=== PATIENT | male | born 1935 | race Caucasian/White ===

== ENCOUNTER 2016-09-12 | Outpatient (CLI) | payer MEDICARE, OTHER | END 2016-09-12 18:19 | disposition EMS.NT | DX: Z03.89 Encounter for observation for other suspected diseases and conditions ruled out (principal) ==

== ENCOUNTER 2016-10-30 11:19 | Emergency (ER) | payer MEDICARE, OTHER | END 2016-10-30 13:05 | disposition home or self-care (01) | DX: R10.2 Pelvic and perineal pain (principal); I10 Essential (primary) hypertension; E78.00 Pure hypercholesterolemia, unspecified; I25.10 Atherosclerotic heart disease of native coronary artery without angina pectoris; I48.91 Unspecified atrial fibrillation; F03.90 Unspecified dementia, unspecified severity, without behavioral disturbance, psychotic disturbance, mood disturbance, and anxiety ==

== ENCOUNTER 2016-11-01 11:50 | Emergency (ER) | payer MEDICARE, OTHER | END 2016-11-01 14:56 | disposition home or self-care (01) | DX: D17.21 Benign lipomatous neoplasm of skin and subcutaneous tissue of right arm (principal); I15.9 Secondary hypertension, unspecified; F03.90 Unspecified dementia, unspecified severity, without behavioral disturbance, psychotic disturbance, mood disturbance, and anxiety; I25.10 Atherosclerotic heart disease of native coronary artery without angina pectoris; I48.91 Unspecified atrial fibrillation; Z79.82 Long term (current) use of aspirin ==

== ENCOUNTER 2017-03-15 11:45 | Outpatient (CLI) | payer MEDICARE, OTHER | END 2017-03-15 11:46 | disposition critical access hospital (66) | LOC: EMS 11:45 | PROVIDERS: ATTEND Surgery | DX: M25.531 Pain in right wrist (principal); M54.5 Low back pain; W18.39XA Other fall on same level, initial encounter; W54.1XXA Struck by dog, initial encounter | CPT/HCPCS: A0425; A0429 ==

== ENCOUNTER 2017-03-15 12:08 | Emergency (ER) | payer MEDICARE, OTHER ==
[2017-03-15 12:14] VITALS: BP 129/71
[2017-03-15] MEDS ORDERED: SULFAMETH/TRIMETH DS 800/160 MG TABLET PO STA ×2 (13:13→13:36)
--- NOTE | 2017-03-15 13:34 | XRAY Preliminary Report ---
Exam: XR Wrist 4 View RT IMPRESSION: 1. Mild soft swelling; negative for fracture or dislocation in the right wrist radiography. 2. 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 [facility] SITE ID: [id number]
--- NOTE | 2017-03-15 13:36 | XRAY Report ---
EXAM: RIGHT WRIST RADIOGRAPHY EXAM DATE: 03/15/2017 12:46 PM. CLINICAL HISTORY: Injury/pain/swelling. COMPARISON: None. TECHNIQUE: 4 views. FINDINGS: Bones: No acute fractures or bony destructive lesions. Joints: There is severe degenerative atelectasis in the first carpometacarpal joint with probable mil d radius side subluxation. No dislocation. Soft Tissues: Diffuse mild soft tissue swelling. IMPRESSION: 1. Mild soft swelling; negative for fracture or dislocation in the right wrist radiography. 2. 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 [facility] Referring Provider Line: [phone] SITE ID: [id number]
--- NOTE | 2017-03-15 13:39 | ED Physician Documentation ---
PD HPI UPPER EXT INJURY - Stated complaint Stated Complaint: ARM PX - Chief complaint Chief Complaint: Ext Problem - History obtained from History obtained from: Patient, EMS - History of Present Illness Location: Right, Wrist Type of injury: Fall Where injury occurred: Home Timing - onset: Last night Timing - duration: Days (1) Timing - details: Abrupt onset Pain level max: 3 Pain level now: 3 Improved by: Rest, Ice, Immobilization Worsened by: Moving, Palpating Associated symptoms: Swelling, Discolored (erythematous, swollen). No: Weakness , Numbness, Tingling Contributing factors: No: Anticoagulated, Prior ortho surgery, Prosthetic joint Similar symptoms before: Has not had sx before Recently seen: Not recently seen Review of Systems Unable to obtain: Confused, Dementia Constitutional: denies: Fever, Chills Cardiac: denies: Chest pain / pressure Respiratory: denies: Cough GI: denies: Nausea, Vomiting, Diarrhea Skin: denies: Rash Musculoskeletal: denies: Neck pain, Back pain Neurologic: denies: Headache PD PAST MEDICAL HISTORY - Past Medical History Past Medical History: Yes Cardiovascular: Hypertension, High cholesterol, Coronary artery disease, Atrial fibrillation Respiratory: None Neuro: Dementia, Headache/migraine Endocrine/Autoimmune: None GI: None, Other : None HEENT: Chronic hearing loss, Chronic vision loss Psych: None Musculoskeletal: None Derm: Psoriasis - Past Surgical History Past Surgical History: Yes General: Other Ortho: Knee replacement HEENT: Tonsil/Adenoidectomy - Present Medications Home Medications: Ambulatory Orders Medication Instructions Recorded Confirmed Ibuprofen 400 mg PO DAILY PRN 07/19/16 10/30/16 Rivastigmine [Exelon] 9.5 mg TOP DAILY 07/19/16 10/30/16 Aspirin [Aspir-Low] 81 mg PO DAILY 07/23/16 10/30/16 Sulfamethox/Trimeth 800/160 1 each PO BID #14 tablet 03/15/17 [Bactrim Ds 800/160] - Allergies Allergies/Adverse Reactions: Allergies Allergy/AdvReac Type Severity Reaction Status Date / Time No Known Drug Allergies Allergy Verified 06/30/16 22:32 - Social History Does the pt smoke?: No Smoking Status: Never smoker Does the pt drink ETOH?: No Does the pt have substance abuse?: No - Immunizations Immunizations are current?: Yes - POLST Patient has POLST: No PD ED PE NORMAL - Vitals Vital signs reviewed: Yes - General General: No acute distress, Other (alert, oriented to person) - HEENT HEENT: Atraumatic, PERRL, Moist mucous membranes - Neck Neck: Supple, no meningeal sign, No bony TTP - Cardiac Cardiac: RRR - Respiratory Respiratory: No respiratory distress, Clear bilaterally - Back Back: No spinal TTP - Derm Derm: Warm and dry - Extremities Extremities: Other (R wrist - swelling, mild ecchymosis and mild erythema. NVI. no deformity. ) - Psych Psych: Normal mood, Normal affect Results - Vitals Vitals: Vital Signs - 24 hr 03/15/17 12:08 Temperature 37.1 C Heart Rate 87 Respiratory 18 Rate Blood Pressure 129/71 O2 Saturation 97 Oxygen O2 Source Room air - Rads (name of study) R wrist xray Radiology: Prelim report reviewed, EMP read contemporaneously, See rad report ( Mild soft swelling; negative for fracture or dislocation in the right wrist radiography. 2. 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 ) PD MEDICAL DECISION MAKING - ED course Complexity details: reviewed results, re-evaluated patient, considered differential, d/w patient ED course: Patient is a 81-year-old male who reportedly had a fall last night and has swelling and pain to the right wrist today. Placed in a Velcro splint for comfort. Concern for secondary mild cellulitis, therefore given Bactrim here. Will place on antibiotics for home as well and close follow-up with his doctor. No other apparent injuries. No neck or back pain. No scalp hematomas. No tenderness to palpation or percussion over the spine. Patient counseled regarding signs and symptoms for which I believe and urgent re-evaluation would be necessary. Patient with good understanding of and agreement to plan and is comfortable going home at this time This document was made in part using voice recognition software. While efforts are made to proofread this document, sound alike and grammatical errors may occur. Departure - Departure Disposition: 01 Home, Self Care Clinical Impression: Wrist sprain Qualifiers: Encounter type: initial encounter Laterality: right Qualified Code(s): S63.501A - Unspecified sprain of right wrist, initial encounter Cellulitis Qualifiers: Site of cellulitis: extremity Site of cellulitis of extremity: upper extremity Laterality: right Qualified Code(s): L03.113 - Cellulitis of right upper limb Condition: Good Instructions: ED Sprain Wrist, ED Splint Care Velcro, ED Infec Skin Cellulitis Follow-Up: Charan Conrad MD [Primary Care Provider] - Within 3 Days (for a check on your arm.) Prescriptions: Sulfamethox/Trimeth 800/160 [Bactrim Ds 800/160] 1 each PO BID #14 tablet Comments: You need to take all the antibiotics as prescribed. You need to keep the splint on until you see your doctor. There is no broken bone today. Return if you worsen. Discharge Date/Time: 03/15/17 14:05
[2017-03-15] MEDS ORDERED: SULFAMETH/TRIMETH DS 800/160 MG TABLET PO ONE (13:40)
== END 2017-03-15 14:05 | disposition home or self-care (01) ==
LOC: EDUNIT# → ED 12:08
DX: S63.501A Unspecified sprain of right wrist, initial encounter (principal); W01.0XXA Fall on same level from slipping, tripping and stumbling without subsequent striking against object, initial encounter; Y92.019 Unspecified place in single-family (private) house as the place of occurrence of the external cause; L03.113 Cellulitis of right upper limb; I10 Essential (primary) hypertension; I48.91 Unspecified atrial fibrillation; I25.10 Atherosclerotic heart disease of native coronary artery without angina pectoris; E78.00 Pure hypercholesterolemia, unspecified; F03.90 Unspecified dementia, unspecified severity, without behavioral disturbance, psychotic disturbance, mood disturbance, and anxiety; Z79.82 Long term (current) use of aspirin
CPT/HCPCS: 73110; 99283; 99284; A9270

== ENCOUNTER 2017-05-22 22:45 | Outpatient (CLI) | payer MEDICARE, OTHER | END 2017-05-22 22:46 | disposition critical access hospital (66) | LOC: EMS 22:45 | PROVIDERS: ATTEND Surgery | DX: R46.89 Other symptoms and signs involving appearance and behavior (principal) | CPT/HCPCS: A0425; A0429 ==

== ENCOUNTER 2017-05-22 23:05 | Emergency (ER) | payer MEDICARE, OTHER ==
[2017-05-22] MEDS ORDERED: OLANZapine 10 MG VIAL IM STA (23:23)
[2017-05-22] MEDS ORDERED: OLANZapine 10 MG VIAL IM ONE (23:32)
[2017-05-22] MEDS ORDERED: WATER FOR INJECTION,STERILE 10 ML ONE (23:35)
[2017-05-23 00:22] LABS: BASOPHILS % (AUTO) 0.4 %; EOSINOPHILS # (AUTO) 0.1 10^3/uL (0.0-0.7); EOSINOPHILS % (AUTO) 2.9 %; HCT - HEMATOCRIT 42.8 % (42.0-52.0); HGB - HEMOGLOBIN 14.5 g/dL (14.0-18.0); LYMPHOCYTES # (AUTO) 1.4 10^3/uL (1.5-3.5); LYMPHOCYTES % (AUTO) 33.2 %; MEAN CORPUSCULAR HEMOGLOBIN 31.3 pg (27.0-31.0); MEAN CORPUSCULAR HGB CONC 33.9 g/dL (32.0-36.0); MEAN CORPUSCULAR VOLUME 92.3 fL (80.0-94.0); MEAN PLATELET VOLUME 7.7 fL (7.4-11.4); MONOCYTES # (AUTO) 0.4 10^3/uL (0.0-1.0); MONOCYTES % (AUTO) 10.2 %; NEUTROPHILS # (AUTO) 2.3 10^3/uL (1.5-6.6); NEUTROPHILS % (AUTO) 53.3 %; RED BLOOD COUNT 4.64 10^6/uL (4.70-6.10); RED CELL DISTRIBUTION WIDTH 13.5 % (12.0-15.0); UNCORRECTED WHITE BLOOD COUNT 4.3 x10^3/uL; WHITE BLOOD COUNT 4.3 x10^3/uL (4.8-10.8)
[2017-05-23 00:31] LABS: ALBUMIN/GLOBULIN RATIO 1.4 (1.0-2.2); BILIRUBIN,TOTAL 1.9 mg/dL (0.2-1.0); BUN - BLOOD UREA NITROGEN 22 mg/dL (6-20); CALCIUM 8.8 mg/dL (8.5-10.3); CARBON DIOXIDE - CO2 24 mmol/L (21-32); CHLORIDE 107 mmol/L (101-111); CREATININE 0.8 mg/dL (0.6-1.2); GFR - MDRD 93 (>89); GLUCOSE 105 mg/dL (70-100); LIPASE 21 U/L (22-51); SALICYLATE < 6.0 mg/dL; SODIUM 140 mmol/L (135-145); TOTAL PROTEIN 7.4 g/dL (6.7-8.2)
[2017-05-23 00:32] LABS: ACETAMINOPHEN < 10 ug/mL (10-30)
[2017-05-23] MEDS ORDERED: POTASSIUM CHLORIDE 20 MEQ TABLET PO STA (00:34)
--- NOTE | 2017-05-23 00:39 | ED Physician Documentation ---
PD HPI MHE - Stated complaint Stated Complaint: MHE - Chief complaint Chief Complaint: Wound - History obtained from History obtained from: EMS, Caregiver - History of Present Illness Primary symptom: Aggressive behavior Timing - onset: Today Similar symptoms before: Work up / diagnostics, Treatment Recently seen: Not recently seen - Additional information Additional information: Patient is a 82 year old male with a history of dementia who was brought to the emergency department for agitation and confusion. According to ems and director day care center/friend, patient went to visit his care-direct support professional caregiver. the director day care center states that he does visit multiple times a day, but this was different because he seemed agitated and it was later at night. She called ems to have the patient come in for evaluation. Upon initial evaluation patient was agitated and just kept saying he wanted to leave. Review of Systems Unable to obtain: Dementia PD PAST MEDICAL HISTORY - Past Medical History Past Medical History: Yes Cardiovascular: Hypertension, High cholesterol, Coronary artery disease, Atrial fibrillation Respiratory: None Neuro: Dementia, Headache/migraine Endocrine/Autoimmune: None GI: None, Other : None HEENT: Chronic hearing loss, Chronic vision loss Psych: Other Musculoskeletal: None Derm: Psoriasis Other Past Medical History: Dementai - Past Surgical History Past Surgical History: Yes General: Other Ortho: Knee replacement HEENT: Tonsil/Adenoidectomy - Allergies Allergies/Adverse Reactions: Allergies Allergy/AdvReac Type Severity Reaction Status Date / Time No Known Drug Allergies Allergy Verified 05/22/17 23:23 - Social History Does the pt smoke?: No Smoking Status: Never smoker Does the pt drink ETOH?: No Does the pt have substance abuse?: No - Immunizations Immunizations are current?: Yes - POLST Patient has POLST: No PD ED PE NORMAL - Vitals Vital signs reviewed: Yes - General General: Well developed/nourished - HEENT HEENT: Atraumatic, PERRL, Moist mucous membranes - Neck Neck: Supple, no meningeal sign - Cardiac Cardiac: RRR, No murmur - Respiratory Respiratory: No respiratory distress - Abdomen Abdomen: Non distended - Extremities Extremities: No deformity, Normal ROM s pain, No edema - Neuro Neuro: No motor deficit, No sensory deficit, Normal speech PD ED PE EXPANDED - Extremities Extremities: Right forearm (mild erythema post injection) - Neuro Neuro: Confused - Psych Psych: Agitated Results - Vitals Vitals: Vital Signs - 24 hr 05/22/17 05/23/17 23:07 00:20 Temperature 36.8 C Heart Rate 104 H Respiratory 18 Rate Blood Pressure 226/95 H 169/83 H O2 Saturation 97 Oxygen O2 Source Room air - Labs Labs: Laboratory Tests 05/23/17 05/23/17 00:10 00:10 WBC 4.3 L RBC 4.64 L Hgb 14.5 Hct 42.8 MCV 92.3 MCH 31.3 H MCHC 33.9 RDW 13.5 Plt Count 146 MPV 7.7 Neut # 2.3 Lymph # 1.4 L [place] # 0.4 Eos # 0.1 Baso # 0.0 Absolute Nucleated RBC 0.00 Nucleated RBC % 0.0 Sodium 140 Potassium 3.0 L Chloride 107 Carbon Dioxide 24 Anion Gap 9.0 BUN 22 H Creatinine 0.8 Estimated GFR (MDRD) 93 Glucose 105 H Calcium 8.8 Total Bilirubin 1.9 H AST 21 ALT 14 Alkaline Phosphatase 66 Total Protein 7.4 Albumin 4.3 Globulin 3.1 Albumin/Globulin Ratio 1.4 Lipase 21 L Salicylates < 6.0 Acetaminophen < 10 L Ethyl Alcohol 6.0 PD MEDICAL DECISION MAKING - ED course Complexity details: reviewed old records, reviewed results, re-evaluated patient , considered differential, d/w patient, d/w family ED course: Patient was seen and examined at bedside. Patient was agitated and uncooperative. Patient's director day care center/friend came and helped calm with patient down and patient was treated with zyprexa 5mg. labs were drawn. When patient' s labs came back there was no major abnormality. Patient's care-direct support professional caregiver stated that she could take the patient home and would keep an eye on him tonight. She states that they have been working on finding a solution, but [facility] in [facility]. Patient was discharged, was calm and cooperative. patient's symptoms were likely secondary to dementia. Departure - Departure Disposition: 01 Home, Self Care Clinical Impression: Dementia Condition: Good Instructions: ED Dementia Caregiver Support Follow-Up: primary,care provider [Other] - Within 1 week Comments: Your diagnostics today where within normal limits. the symptoms were likely secondary to dementia. You should follow up with the primary care doctor this week and possible have an as needed medication for agitation. You may return to the emergency department at any time for new, worsening or uncontrollable symptoms.
[2017-05-23] MEDS ORDERED: POTASSIUM CHLORIDE 20 MEQ TABLET PO ONE (00:46)
[2017-05-23 01:01] VITALS: BP 145/87
== END 2017-05-23 01:08 | disposition home or self-care (01) ==
LOC: EDUNIT# → ED 23:05
DX: F03.90 Unspecified dementia, unspecified severity, without behavioral disturbance, psychotic disturbance, mood disturbance, and anxiety (principal); I10 Essential (primary) hypertension; E78.00 Pure hypercholesterolemia, unspecified; I25.10 Atherosclerotic heart disease of native coronary artery without angina pectoris; Z96.659 Presence of unspecified artificial knee joint
CPT/HCPCS: 36415; 80053; 80307; 83690; 84443; 85025; 99283; 99284; A9270; G0480; 80320; 80329

== ENCOUNTER 2017-07-08 11:00 | Outpatient (CLI) | payer MEDICARE, OTHER ==
--- NOTE | 2017-07-08 16:37 | CONSULTATION NOTE ---
Palliative Care Consultation - Referral Referring Provider: Dr. Abdi So MD Time of Visit: 11:00 Referral setting: Home (Seen in home setting due to taxing and considerable effort required to leave the home secondary to advancing dementia and lack of impulse control.) - Information Sources History/Review of Systems obtained from: Patient, Friend Exam limitations: Clinical condition (Dementia, tangential thinking, significantly hard of hearing) - History of Present Illness Brief History of Present Illness: Thank you, Dr. So, for asking the palliative care consult service to be involved in the care of your patient. I am asked to provide support regarding severe dementia and agitation. This is an 82-year-old gentleman who is a retired [employer] with 37 years in the [employer], who has advancing dementia with behaviors. He has a history of paroxysmal atrial fibrillation, HTN, HLD, CAD, chronic liver disease, alcohol abuse, bilateral knee replacement, and repair of L inguinal hernia. He has a complicated history of multiple and recurrent visits to the ED over the past three and a half years including falls with head injury, confusion, welfare checks, rash/infection to lower extremity/ankle/feet, cellulitis of hand, abdominal pain related to hernia, instances of confusion. There was one instance in July 2016 he was placed on hold by police for DMHP evaluation by Bren, [phone]. It was determined at that time there were no grounds for involuntary hold and no eunice-psych beds available at that time. His most recent ED visit was 05/22/17 for agitated, confused behavior. He visited his friend/caregiver/DPOA, Milly Atkinst, which he does frequently, but this time he seemed more agitated and it was later than usual, so she called EMS for an evaluation. He was released with the recommendation to follow up with his PCP. On 07/03/17, he again displayed agitation and his DPOA took him to the walk-in clinic and he was seen by Dr So, who referred him to Palliative Care for "severe dementia." The patient has been noted to be a poor historian. He denies taking any medications apart from ibuprofen. He says that he does not need any, he is fine. If he has a problem he goes to the doctor. His DPOA states that several months ago he weaned himself off rivastigmine transdermal, and xyprexa, which had been prescribed by his PCP. Milly notes that his behaviors of anxiety and aggression increased with rivastigmine, and even more so with xyprexa, and she did feel unsafe around him. When she felt unsafe around him she had a restraining order taken out against the patient, at the advice of the fish boning machine feeder's department. It has since been reversed. She and the patient are both and have known each other over 40 years, they were originally neighbors, and her was in the [employer], as was the patient. They eventually reconnected and asked her help with his financial matters, eventually naming her as DPSADIE, for his health and financial matters. She has been extremely involved in helping and supporting him on a daily basis. His daughter lives in the area but is estranged from the patient and refuses to have anything to do with him. He also apparently has an older daughter in [place] who's also out of the picture. He also has a grandson -- he showed me the guest room where his grandson and his girlfriend (now his ) stay when they visit. Milly has noted his cognitive decline over the past several years but he continues to perform his own ADLs, showering himself, and is still able to prepare meals. With the cognitive decline, the deficit is lack of judgment and poor impulse control. Examples are that he flags down motorists for rides; at ED visits he often leaves without waiting for the medication, and the displays of verbal belligerence and aggressiveness. As far as I can tell the aggression remains verbal, not physical. He has a history of numerous run-ins with neighbors and calls of one sort or another in to the [facility]. This morning prior to my visit, a deputy left a voicemail with Milly informing her that neighbors had called to complain about him wandering outside of his house, perseverating about a generator. He has a history of these sorts of situations, as well as many, many calls to the [facility] 's department by Milly requesting safety checks There also is an element of paranoia. Milly said the three subjects that upset him and set off his paranoia are his dog, his home, and his land. She says he's been the victim of fraud attempts: of people knocking on his door and approaching him about his property. At one point she saw two men on his property , and thought they might be trying to give him alcohol. When I asked her if she has broached the subject of moving into Assisted Living or some other alternative arrangement, she has, and he is adamantly against it. During my assessment he became upset and belligerent in response to some of my questions, for example about his medications. He also has a difficult time sitting down and focusing for this visit. Milly repeatedly had to ask him until he finally complied. He was fixated on his pet dog, unable to follow simple directions, had difficulty understanding my questions, likely exacerbated by his hearing deficit. His responses were often non-sequiturs and tangential. Before I left, Milly wanted the patient to give me a tour of the lower level of his house, and the patient was very cooperative and happy to do so. During this tour, he showed me an old fashioned bank vault door, quite beautiful, filled with numerous rifles and ammunition. (He used to bean.) We inquired with the fish boning machine feeder's department, and they are aware he owns firearms. He also had an extensive wine cellar with a large quantity of wine bottles. It is unclear to me whether he still drinks alcohol; some of the ED reports listed alcohol as a factor in his ALOC visits. Milly reports that APS (Adult Protective Services ) has audited both the patient and Milly about a year ago, and the case was closed. The Palliative Care SW called the SW at the [facility], who has worked extensively with Milly already and apparently Milly has investigated, followed up with, and exhausted every avenue that the [facility] and social system has to offer. The fish boning machine feeder' s department is also very familiar with the patient and his history. At some point in the past a 3-day involuntary hold was done, but the next step, a 14- day commitment, did not succeed, apparently in large part to Milly's objection and testifying on behalf of the patient. Without the 14-day commitment, the firearms owned by the patient cannot be taken away, for his safety, as well as for safety of others in light of his cognitive decline, lack of judgment, and poor impulse control. The patient is in relatively good physical condition. He walks daily, and works around his home and property and manages his own household affairs. He is no longer driving, though he would like to. It is doubtful that he could manage to continue living solo without the support and help of Milly, who does bring him dinner at times, takes him shopping, and spends much time at his place. While I was there she was doing laundry, and also pointing out to him that his dog urinated on the kitchen floor. Medical/Surgical History - Past Medical History Cardiovascular: reports: Hypertension, High cholesterol, Coronary artery disease , Atrial fibrillation Respiratory: reports: None Neuro: reports: Dementia, Headache/migraine Endocrine/Autoimmune: reports: None GI: reports: None, Other : reports: None HEENT: reports: Chronic hearing loss, Chronic vision loss Psych: reports: Other Musculoskeletal: reports: None Derm: reports: Psoriasis MRSA Hx?: No - Past Surgical History General: reports: Other (L inguinal hernia repair) Ortho: reports: Knee replacement (bilateral) HEENT: reports: Tonsil/Adenoidectomy - Substance History Use: Uses substance without health or social issues: Tobacco (former smoker), Alcohol (past alcohol issues; unclear if he continues to use alcohol.) Use Issues: Intoxication (past ED visits note involvement of etoh) Social History - Living Situation Living arrangement: At home Living Situation: Alone (he is , but his friend/DPOA Milly Aldridge spends a good deal of time at his place helping him and advocating for him.) Medications/Allergies - Medications Home Medications: Ambulatory Orders Medication Instructions Recorded Confirmed Ibuprofen 07/08/17 - Allergies Allergies/Adverse Reactions: Allergies Allergy/AdvReac Type Severity Reaction Status Date / Time No Known Drug Allergies Allergy Verified 05/22/17 23:23 Review of Systems - Constitutional Constitutional: reports: Weight stable (165 lbs claimed by patient. 175 lbs in his chart) - Ears, Nose & Throat Ears, Nose & Throat: reports: Hearing loss (significant hearing loss. Does not wear hearing aids; has lost previous pairs.) - Respiratory Respiratory: reports: Cough - Gastrointestinal Gastrointestinal: reports: Constipation, Nausea - Genitourinary Genitourinary: reports: Dysuria - Other Findings Other Findings: Patient an unreliable historian. Non-sequitur/tangential responses, several times displayed verbal belligerence, would not respond to ROS questions. Physical Exam - Vital Signs Temperature: 98.5 F Pulse Rate: 95 O2 Saturation: 87 Blood Pressure: 150/90 - Physical Exam General Appearance: positive: Moderate distress (calm at times, but became agitated and belligerent at points in the assessment) Eyes Bilateral: positive: EOMI, No lid inflammation, Conjunctivae nml, No scleral icterus ENT: positive: No signs of dehydration Neck: positive: No JVD, Trachea midline Cardiovascular: positive: No murmur, Irregularly irregular Respiratory: positive: Diminished throughout. negative: Rales, Rhonchi Skin: positive: No symptoms, Wound (Healing wound R arm, from lipoma removal) Extremities: positive: Nml appearance, No pedal edema Neurologic/Psychiatric: positive: Mood/affect nml (except for moments of volatility, belligerence, in response to assessment questions) Palliative Care - POLST Patient has POLST: No Pain: Comment (Occasional pain in R knee (has had bilateral knees replaced)) Tiredness/Fatigue: None Drowsiness/Sedation: None Nausea: None Anxiety: Moderate (4-6) Dyspnea: None Anorexia: None Sleep: Sleeps well Performance Status: Previous level of function prior to this episode: Current level of functioning: Ambulatory, able to walk long distances, is in very good physical condition. Performs his own ADLs, cooks meals, maintains his household, but with extensive support from Milly. His main deficit is cognitive decline, lack of impulse control and lack of judgement. Palliative Care Performance Status: 90% - Palliative Care Discussion: Who is present: The patient, his DPOA, myself. Surrogate decision maker: Milly Aldridge, friend, care transition coordinator, DPOA: Home [phone]. Make contact through Milly. Patient/Family understanding of the illness: Patient appears to lack insight into his condition. Milly does enable him to continue to live "independently" in his home, though from what I understand, she is there much, if not the majority, of the time. He is not an appropriate Palliative Care candidate -- he is non-compliant with medications, and he does not present with a symptom burden where it would be beneficial to continue on-going Palliative Care support. What is more appropriate would be Adult Protective Services, which has already been involved, and a eunice-psych evaluation and management in a controlled environment. Impression and Recommendations - Palliative Care Impression: This is an 82 year old man in relatively good, robust physical health but whose dementia is advancing, likely putting himself at risk. He exhibits poor judgment, poor impulse control, and paranoia. There is nothing medical we can do since he will not take medications, and he has no symptoms to manage. He is not at end of life, so goals of care are not an issue. The Palliative Care Industrial Relations Representative can contact his DPOA and offer some support and guidance, but will not be able to offer any further resources or support than has been offered to Milly and the patient through other channels, such as the [facility] social services counselor. At this time the patient is not a good candidate for palliative care support; he doesn't present with symptoms that could benefit from Palliative Care support. He would be more appropriate for eunice-psych evaluation, or adult protective services, although he likely is one of those cases that can fall through the cracks. Law enforcement, as well as licensed master social worker and the [facility], are very familiar with the patient, and his history, including his legal access to firearms. Recommendations/Counseling Done: Dementia with behaviors and aggression: He is experiencing increasing cognitive decline, he would benefit from eunice-psych evaluation, assuming he would cooperate, which is highly unlikely. He is non-compliant with medications and has weaned himself off of prior medications prescribed. Palliative Care is not an appropriate service for this patient either medically or for advanced planning. The first priority in this case is safety -- of the patient, as well as of Milly, and of the public. At this point, the social support system has its hands tied, so to speak. He would need to be in a setting that could monitor psych medications, but he cannot be forced involuntarily into Assisted Living, which would not be appropriate setting anyway, since it's highly unlikely he would leave his home voluntarily and fit into the community. Our Palliative Care Industrial Relations Representative, after being briefed on the case by a social services counselor contact at the [facility], reckons she will not be able to give Milly any resources, direction, or support that Milly has not already offered, but she has agreed to speak with Milly, and meet with her, as a courtesy and to support her. Time Spent: 90 minutes with greater than 50% of this done in counseling and coordination of care regarding dementia and social issues, weighing benefits and burdens of different intervention options.
== END 2017-07-08 11:01 | disposition home or self-care (01) ==
LOC: PC 11:00
PROVIDERS: ATTEND Nurse Practitioner
DX: Z51.5 Encounter for palliative care (principal); F03.90 Unspecified dementia, unspecified severity, without behavioral disturbance, psychotic disturbance, mood disturbance, and anxiety; H91.90 Unspecified hearing loss, unspecified ear; T50.99 Poisoning by, adverse effect of and underdosing of other drugs, medicaments and biological substances; Z91.128 Patient's intentional underdosing of medication regimen for other reason; I10 Essential (primary) hypertension; I25.10 Atherosclerotic heart disease of native coronary artery without angina pectoris; I48.91 Unspecified atrial fibrillation; L40.9 Psoriasis, unspecified; F63.9 Impulse disorder, unspecified; Z87.891 Personal history of nicotine dependence
CPT/HCPCS: 99345

== ENCOUNTER 2017-07-18 13:38 | Emergency (ER) | payer MEDICARE, OTHER ==
[2017-07-18 15:41] LABS: BASOPHILS % (AUTO) 0.4 %; HCT - HEMATOCRIT 46.9 % (42.0-52.0); HGB - HEMOGLOBIN 15.7 g/dL (14.0-18.0); LYMPHOCYTES # (AUTO) 1.2 10^3/uL (1.5-3.5); MEAN CORPUSCULAR HGB CONC 33.5 g/dL (32.0-36.0); MEAN CORPUSCULAR VOLUME 92.5 fL (80.0-94.0); MEAN PLATELET VOLUME 7.7 fL (7.4-11.4); MONOCYTES # (AUTO) 0.4 10^3/uL (0.0-1.0); MONOCYTES % (AUTO) 9.1 %; NEUTROPHILS # (AUTO) 3.2 10^3/uL (1.5-6.6); NEUTROPHILS % (AUTO) 65.5 %; RED BLOOD COUNT 5.08 10^6/uL (4.70-6.10); RED CELL DISTRIBUTION WIDTH 14.2 % (12.0-15.0); UNCORRECTED WHITE BLOOD COUNT 4.8 x10^3/uL; WHITE BLOOD COUNT 4.8 x10^3/uL (4.8-10.8)
[2017-07-18 15:59] LABS: ALBUMIN/GLOBULIN RATIO 1.4 (1.0-2.2); BILIRUBIN,TOTAL 2.2 mg/dL (0.2-1.0); BUN - BLOOD UREA NITROGEN 24 mg/dL (6-20); CALCIUM 9.4 mg/dL (8.5-10.3); CARBON DIOXIDE - CO2 29 mmol/L (21-32); CHLORIDE 104 mmol/L (101-111); GFR - MDRD 72 (>89); GLUCOSE 117 mg/dL (70-100); LIPASE 21 U/L (22-51); POTASSIUM 3.9 mmol/L (3.5-5.0); SALICYLATE < 6.0 mg/dL; SODIUM 140 mmol/L (135-145); TOTAL PROTEIN 8.1 g/dL (6.7-8.2)
[2017-07-18 16:04] LABS: ACETAMINOPHEN < 10 ug/mL (10-30)
[2017-07-18 16:33] LABS: BILIRUBIN,URINE NEGATIVE (NEGATIVE); UA CHARGE (STRIP ONLY) YES; UR CULTURE IF IND NOT INDICATED
--- NOTE | 2017-07-18 16:53 | ED Physician Documentation ---
History of Present Illness - Stated complaint Stated Complaint: ANXIETY - Chief complaint Chief Complaint: MHE - History obtained from History obtained from: Caregiver (Pt is here for evaluation of anxiety agitation. pt has been here in the past for similar. respiratory care instructor states that his symptoms worsened last night and today.) Review of Systems Unable to obtain: Dementia PD PAST MEDICAL HISTORY - Past Medical History Cardiovascular: Hypertension, High cholesterol, Coronary artery disease, Atrial fibrillation Respiratory: None Neuro: Dementia, Headache/migraine Endocrine/Autoimmune: None GI: None, Other : None HEENT: Chronic hearing loss, Chronic vision loss Psych: Other Musculoskeletal: None Derm: Psoriasis - Past Surgical History Past Surgical History: Yes General: Other Ortho: Knee replacement HEENT: Tonsil/Adenoidectomy - Present Medications Home Medications: Ambulatory Orders Medication Instructions Recorded Confirmed Lorazepam [Ativan] 1 mg PO Q3HR PRN #10 tablet 07/18/17 - Allergies Allergies/Adverse Reactions: Allergies Allergy/AdvReac Type Severity Reaction Status Date / Time No Known Drug Allergies Allergy Verified 07/18/17 14:10 - Social History Does the pt smoke?: No Smoking Status: Never smoker Does the pt drink ETOH?: No Does the pt have substance abuse?: No - Immunizations Immunizations are current?: Yes - POLST Patient has POLST: No PD ED PE NORMAL - Vitals Vital signs reviewed: Yes - General General: Alert and oriented X 3, Other (adgitated) - Cardiac Cardiac: RRR, No murmur - Respiratory Respiratory: No respiratory distress - Derm Derm: Normal color, Warm and dry, No rash - Neuro Neuro: Other (knows name but does not know why he is here. ) Results - Vitals Vitals: Vital Signs - 24 hr 07/18/17 14:03 Temperature 36.6 C Heart Rate 74 Respiratory 16 Rate Blood Pressure 139/73 H O2 Saturation 100 Oxygen O2 Source Room air - Labs Labs: Laboratory Tests 07/18/17 07/18/17 07/18/17 15:31 15:31 15:31 WBC 4.8 RBC 5.08 Hgb 15.7 Hct 46.9 MCV 92.5 MCH 31.0 MCHC 33.5 RDW 14.2 Plt Count 168 MPV 7.7 Neut # 3.2 Lymph # 1.2 L [place] # 0.4 Eos # 0.0 Baso # 0.0 Absolute Nucleated RBC 0.00 Nucleated RBC % 0.0 Sodium 140 Potassium 3.9 Chloride 104 Carbon Dioxide 29 Anion Gap 7.0 BUN 24 H Creatinine 1.0 Estimated GFR (MDRD) 72 L Glucose 117 H Calcium 9.4 Total Bilirubin 2.2 H AST 24 ALT 17 Alkaline Phosphatase 71 Total Protein 8.1 Albumin 4.7 Globulin 3.4 Albumin/Globulin Ratio 1.4 Lipase 21 L TSH 0.99 Urine Color Urine Clarity Urine pH Ur Specific [place] Urine Protein Urine Glucose (UA) Urine Ketones Urine Occult Blood Urine Nitrite Urine Bilirubin Urine Urobilinogen Ur Leukocyte Esterase Ur Microscopic Review Urine Culture Comments Salicylates < 6.0 Urine Opiates Screen Ur Oxycodone Screen Urine Methadone Screen Ur Propoxyphene Screen Acetaminophen < 10 L Ur Barbiturates Screen Ur Tricyclics Screen Ur Phencyclidine Scrn Ur Amphetamine Screen U Methamphetamines Scrn U Benzodiazepines Scrn Urine Cocaine Screen U Cannabinoids Screen Ethyl Alcohol < 5.0 07/18/17 16:17 WBC RBC Hgb Hct MCV MCH MCHC RDW Plt Count MPV Neut # Lymph # [place] # Eos # Baso # Absolute Nucleated RBC Nucleated RBC % Sodium Potassium Chloride Carbon Dioxide Anion Gap BUN Creatinine Estimated GFR (MDRD) Glucose Calcium Total Bilirubin AST ALT Alkaline Phosphatase Total Protein Albumin Globulin Albumin/Globulin Ratio Lipase TSH Urine Color DARK YELLOW Urine Clarity CLEAR Urine pH 6.0 Ur Specific [place] 1.025 Urine Protein NEGATIVE Urine Glucose (UA) NEGATIVE Urine Ketones NEGATIVE Urine Occult Blood NEGATIVE Urine Nitrite NEGATIVE Urine Bilirubin NEGATIVE Urine Urobilinogen 1 (NORMAL) Ur Leukocyte Esterase NEGATIVE Ur Microscopic Review NOT INDICATED Urine Culture Comments NOT INDICATED Salicylates Urine Opiates Screen NEGATIVE Ur Oxycodone Screen NEGATIVE Urine Methadone Screen NEGATIVE Ur Propoxyphene Screen NEGATIVE Acetaminophen Ur Barbiturates Screen NEGATIVE Ur Tricyclics Screen NEGATIVE Ur Phencyclidine Scrn NEGATIVE Ur Amphetamine Screen NEGATIVE U Methamphetamines Scrn NEGATIVE U Benzodiazepines Scrn NEGATIVE Urine Cocaine Screen NEGATIVE U Cannabinoids Screen NEGATIVE Ethyl Alcohol PD MEDICAL DECISION MAKING - ED course Complexity details: other ED course: had a long discussion with the respiratory care instructor about the situation. pt became less agitated while in the ER. I discussed with the respiratory care instructor about finding placement for him at this visit or sending him home with some ativan and having the primary care provider helping next week. the respiratory care instructor states that her only concern was the agitation and now that he is calm she is OK with taking him home. I did offer trying to place him at this visit but she wanted to take him home. She was informed that she could return at any point. Departure - Departure Disposition: , Self Care Clinical Impression: Anxiety, Agitated Condition: Good Follow-Up: Charan Conrad MD [Primary Care Provider] - Prescriptions: Lorazepam [Ativan] 1 mg PO Q3HR PRN #10 tablet PRN Reason: Agitation Comments: You can return to the ER at any point if needed. take the medication as needed. Call the primary care provider on friday to discuss placement.
[2017-07-18 17:39] VITALS: BP 140/88
== END 2017-07-18 17:30 | disposition home or self-care (01) ==
LOC: ED 13:38
DX: F41.9 Anxiety disorder, unspecified (principal); R45.1 Restlessness and agitation; F03.90 Unspecified dementia, unspecified severity, without behavioral disturbance, psychotic disturbance, mood disturbance, and anxiety; I25.10 Atherosclerotic heart disease of native coronary artery without angina pectoris; I10 Essential (primary) hypertension; Z96.659 Presence of unspecified artificial knee joint
CPT/HCPCS: 36415; 80053; 80306; 80307; 81003; 83690; 84443; 85025; 99283; 99284; G0480; 80320; 80329; 81001; 87086

== ENCOUNTER 2017-07-19 21:33 | Outpatient (CLI) | payer MEDICARE, OTHER | END 2017-07-19 21:34 | disposition critical access hospital (66) | LOC: EMS 21:33 | PROVIDERS: ATTEND Surgery | DX: M25.551 Pain in right hip (principal); W01.0XXA Fall on same level from slipping, tripping and stumbling without subsequent striking against object, initial encounter; Y92.480 Sidewalk as the place of occurrence of the external cause | CPT/HCPCS: A0425; A0427 ==

== ENCOUNTER 2017-10-02 11:10 | Outpatient (CLI) | payer MEDICARE, OTHER | END 2017-10-02 11:11 | disposition critical access hospital (66) | LOC: EMS 11:10 | PROVIDERS: ATTEND Surgery | DX: R45.1 Restlessness and agitation (principal); M25.551 Pain in right hip | CPT/HCPCS: A0425; A0429 ==

== ENCOUNTER 2017-10-02 11:13 | Emergency (ER) | payer MEDICARE, OTHER ==
--- NOTE | 2017-10-02 12:29 | ED Physician Documentation ---
PD HPI MHE - Stated complaint Stated Complaint: DEMENTIA - Chief complaint Chief Complaint: MHE - History obtained from History obtained from: Patient, Family (mostly his DPOA) - History of Present Illness Timing - onset: Today (He went to the orthopedics clinic today for follow-up on a hip surgery from a couple of months ago. 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 He got out of control at the office and was referred to the emergency department. The DPOAE says he still a little agitated but much more calm and closer to his baseline which is very demented.) Review of Systems Unable to obtain: Dementia PD PAST MEDICAL HISTORY - Past Medical History Past Medical History: Yes Cardiovascular: Hypertension, High cholesterol, Coronary artery disease, Atrial fibrillation Respiratory: None Neuro: Dementia, Headache/migraine Endocrine/Autoimmune: None GI: Other : None HEENT: Chronic hearing loss, Chronic vision loss Psych: Other Musculoskeletal: None Derm: None, Psoriasis - Past Surgical History Past Surgical History: Yes General: Other Ortho: Knee replacement HEENT: Tonsil/Adenoidectomy - Present Medications Home Medications: Ambulatory Orders Medication Instructions Recorded Confirmed Walker [Ultra-Light Rollator] 1 each MC ONCE #1 each 08/01/17 10/02/17 Acetaminophen [Tylenol] 650 - 975 mg PO Q4HR PRN #30 tablet 08/02/17 10/02/17 Polyethylene Glycol 3350 [Miralax] 17 gm PO DAILY #30 packet 08/02/17 10/02/17 Senna [Senokot] 8.6 - 17.2 mg PO DAILY PRN #30 08/02/17 10/02/17 tablet amLODIPine [Norvasc] 5 mg PO DAILY #30 tablet 08/02/17 10/02/17 oxyCODONE/ACET 5/325 [Percocet 5 1 tab PO Q4HR PRN #30 tablet 08/02/17 10/02/17 mg/325 mg] traZODone [Desyrel] 50 mg PO QPM #30 tablet 08/02/17 10/02/17 Quetiapine Fumarate [Seroquel Xr] 25 mg PO BID 10/02/17 10/02/17 - Allergies Allergies/Adverse Reactions: Allergies Allergy/AdvReac Type Severity Reaction Status Date / Time No Known Drug Allergies Allergy Verified 10/02/17 11:21 - Social History Does the pt smoke?: No Smoking Status: Never smoker Does the pt drink ETOH?: No Does the pt have substance abuse?: No - Immunizations Immunizations are current?: Yes - POLST Patient has POLST: No POLST Status: Full Code PD ED PE NORMAL - Vitals Vital signs reviewed: Yes - General General: Other (He is alert and oriented to person, quite cooperative. 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 No: Alert and oriented X 3 (person only, does remember being at ortho office and continues with delusions RE shoes) Eye Opening: Spontaneous Motor: Obeys Commands Verbal: Confused GCS Score: 14 Results - Vitals Vitals: Vital Signs - 24 hr 10/03/17 10/03/17 10/03/17 08:51 14:37 15:21 Temperature Heart Rate 88 51 L 61 Respiratory 18 19 19 Rate Blood Pressure 153/98 H 136/61 H 127/71 O2 Saturation 95 96 10/03/17 10/04/17 22:03 04:22 Temperature 36.8 C Heart Rate 71 83 Respiratory 18 20 Rate Blood Pressure 135/64 H 153/78 H O2 Saturation 96 98 Oxygen O2 Source Room air - Labs Labs: Laboratory Tests 10/02/17 10/02/17 10/02/17 16:48 16:48 16:48 WBC 4.4 L RBC 4.57 L Hgb 13.6 L Hct 41.0 L MCV 89.7 MCH 29.7 MCHC 33.1 RDW 13.9 Plt Count 167 MPV 7.5 Neut # 2.7 Lymph # 1.2 L [place] # 0.4 Eos # 0.1 Baso # 0.0 Absolute Nucleated RBC 0.01 Nucleated RBC % 0.2 PT 12.7 H INR 1.1 Sodium 139 Potassium 3.4 L Chloride 102 Carbon Dioxide 25 Anion Gap 12.0 BUN 20 Creatinine 0.9 Estimated GFR (MDRD) 81 L Glucose 113 H Calcium 9.0 Magnesium 1.9 Total Bilirubin 1.0 AST 20 ALT 13 Alkaline Phosphatase 116 Total Protein 7.1 Albumin 3.9 Globulin 3.2 Albumin/Globulin Ratio 1.2 Lipase 13 L TSH Urine Opiates Screen Ur Oxycodone Screen Urine Methadone Screen Ur Propoxyphene Screen Ur Barbiturates Screen Ur Tricyclics Screen Ur Phencyclidine Scrn Ur Amphetamine Screen U Methamphetamines Scrn U Benzodiazepines Scrn Urine Cocaine Screen U Cannabinoids Screen Ethyl Alcohol < 5.0 10/02/17 10/02/17 16:48 19:30 WBC RBC Hgb Hct MCV MCH MCHC RDW Plt Count MPV Neut # Lymph # [place] # Eos # Baso # Absolute Nucleated RBC Nucleated RBC % PT INR Sodium Potassium Chloride Carbon Dioxide Anion Gap BUN Creatinine Estimated GFR (MDRD) Glucose Calcium Magnesium Total Bilirubin AST ALT Alkaline Phosphatase Total Protein Albumin Globulin Albumin/Globulin Ratio Lipase TSH 1.16 Urine Opiates Screen NEGATIVE Ur Oxycodone Screen POSITIVE H Urine Methadone Screen NEGATIVE Ur Propoxyphene Screen NEGATIVE Ur Barbiturates Screen NEGATIVE Ur Tricyclics Screen POSITIVE H Ur Phencyclidine Scrn NEGATIVE Ur Amphetamine Screen NEGATIVE U Methamphetamines Scrn NEGATIVE U Benzodiazepines Scrn POSITIVE H Urine Cocaine Screen NEGATIVE U Cannabinoids Screen NEGATIVE Ethyl Alcohol PD MEDICAL DECISION MAKING - ED course ED course: Spoke with Dr Cowan, tele-psych who will see him. However, unable to do tele-psych, d/t technical difficulties. She recommended decreasing ativan and increasing seroquel. Cleared this with Dr. Mohsen Felder who is agreeable and the director at [facility]. We also repeated the x-rays and these were reviewed remotely by Dr. Mccloud who feels that no specific follow-up with them is necessary. However he became much more agitated and it was clear that we could not safely discharge him. Social work became involved and he was given 10 of Zyprexa IM. 10/03/17- Calm for most of the day, did get a few rounds of medications. I was notified on arrival for my shift that he had to be out of restraints for 24 hours for most facilities to consider him. The restraints were removed and he was cooperative throughout the shift but mostly sleeping. Notified by social work that they would continue to try to place tomorrow. Departure - Departure Disposition: [facility] Hosp/Unit DC/Xfer Clinical Impression: Combative behavior Closed right hip fracture Qualifiers: Encounter type: initial encounter Qualified Code(s): S72.001A - Fracture of unspecified part of neck of right femur, initial encounter for closed fracture Condition: Stable Record reviewed to determine appropriate education?: Yes
[2017-10-02] MEDS ORDERED: QUEtiapine 25 MG TABLET PO STA ×2 (14:05→19:01)
--- NOTE | 2017-10-02 15:39 | XRAY Preliminary Report ---
Exam: XR HIP W/PELVIS 2-3V RT IMPRESSION: 1. Dramatic demineralization of the lesser trochanter avulsion fracture fragment. Although this may j ust represent unusual bland reactive demineralization, possibility of osteomyelitis or bone infarct i ncluded. Correlate clinically and if there is a need to further evaluate, MRI may be useful, despite the expected significant artifacts from the surgical hardware. 2. The rest of study is stable and unremarkable. [facility] SITE ID: [id number]
[2017-10-02] MEDS ORDERED: OLANZapine 10 MG VIAL IM ONE (16:13)
[2017-10-02 16:54] LABS: BASOPHILS % (AUTO) 0.9 %; EOSINOPHILS # (AUTO) 0.1 10^3/uL (0.0-0.7); EOSINOPHILS % (AUTO) 1.3 %; HGB - HEMOGLOBIN 13.6 g/dL (14.0-18.0); LYMPHOCYTES # (AUTO) 1.2 10^3/uL (1.5-3.5); LYMPHOCYTES % (AUTO) 26.5 %; MEAN CORPUSCULAR HEMOGLOBIN 29.7 pg (27.0-31.0); MEAN CORPUSCULAR HGB CONC 33.1 g/dL (32.0-36.0); MEAN CORPUSCULAR VOLUME 89.7 fL (80.0-94.0); MEAN PLATELET VOLUME 7.5 fL (7.4-11.4); MONOCYTES # (AUTO) 0.4 10^3/uL (0.0-1.0); MONOCYTES % (AUTO) 8.4 %; NEUTROPHILS # (AUTO) 2.7 10^3/uL (1.5-6.6); NEUTROPHILS % (AUTO) 62.9 %; PLT - PLATELET COUNT 167 10^3/uL (130-450); RED BLOOD COUNT 4.57 10^6/uL (4.70-6.10); RED CELL DISTRIBUTION WIDTH 13.9 % (12.0-15.0); WHITE BLOOD COUNT 4.4 x10^3/uL (4.8-10.8)
[2017-10-02 16:59] LABS: INR 1.1 (0.8-1.2); PT - PROTHROMBIN TIME 12.7 secs (9.9-12.6)
--- NOTE | 2017-10-02 17:06 | XRAY Report ---
EXAM: RIGHT HIP AND PELVIS RADIOGRAPHY EXAM DATE: 10/02/2017 03:26 PM. HISTORY: ORIF July 2017. Recurrent right hip pain. COMPARISONS: 09/19/2017. 07/21/2017. TECHNIQUE: 1 view of the pelvis and 2 views of the hip. FINDINGS: Bones: Moderate interval demineralization of the large-caliber displaced avulsion fracture of the les ser trochanter. No hyperacute trabecular or cortical disruption. Joints: Prior right hip ORIF. Surgical hardware intact. Stable 2.5 mm lucency along the tip of the co mpression screw. Very mild degenerative changes both hips. Marked degenerative disk disease L4-L5 and L5-S1. Soft Tissues: Normal. No soft tissue swelling. IMPRESSION: 1. Dramatic demineralization of the lesser trochanter avulsion fracture fragment. Although this may j ust represent unusual bland reactive demineralization, the possibility of osteomyelitis or bone infar ct included. Correlate clinically and if there is a need to further evaluate, MRI may be useful, desp ite the expected significant artifacts from the surgical hardware. 2. The rest of study is stable and unremarkable. [facility] Referring Provider Line: [phone] SITE ID: [id number]
[2017-10-02 17:07] LABS: ALBUMIN 3.9 g/dL (3.2-5.5); ALBUMIN/GLOBULIN RATIO 1.2 (1.0-2.2); ALKALINE PHOSPHATASE 116 IU/L (42-121); ALT ALANINE AMINOTRANSFERASE 13 IU/L (10-60); AST ASPARTATE AMINOTRANSFERASE 20 IU/L (10-42); BUN - BLOOD UREA NITROGEN 20 mg/dL (6-20); CARBON DIOXIDE - CO2 25 mmol/L (21-32); CHLORIDE 102 mmol/L (101-111); CREATININE 0.9 mg/dL (0.6-1.2); GFR - MDRD 81 (>89); GLUCOSE 113 mg/dL (70-100); LIPASE 13 U/L (22-51); MAGNESIUM 1.9 mg/dL (1.7-2.8); SODIUM 139 mmol/L (135-145); TOTAL PROTEIN 7.1 g/dL (6.7-8.2)
[2017-10-02] MEDS ORDERED: LORazepam 0.5 MG TABLET PO STA (17:45)
[2017-10-02 19:35] LABS: MUDS CUTOFF CONCENTRATIONS CUTOFF CONC BELOW:
[2017-10-02 19:47] LABS: AMPHETAMINE SCREEN,URINE NEGATIVE (NEGATIVE); BENZODIAZEPINES SCREEN, URINE POSITIVE (NEGATIVE); COCAINE SCREEN URINE NEGATIVE (NEGATIVE); METHADONE SCREEN, URINE NEGATIVE (NEGATIVE); METHAMPHETAMINES SCREEN, URINE NEGATIVE (NEGATIVE); OPIATE SCREEN, URINE NEGATIVE (NEGATIVE); OXYCODONE SCREEN, URINE POSITIVE (NEGATIVE); PROPOXYPHENE SCREEN, URINE NEGATIVE (NEGATIVE); TRICYCLIC ANTIDEPRESSANT,URINE POSITIVE (NEGATIVE)
[2017-10-03] MEDS ORDERED: OLANZapine ODT 5 MG TABLET TL ONE (00:14)
[2017-10-03] MEDS ORDERED: QUEtiapine 25 MG TABLET PO STA (09:39)
[2017-10-03] MEDS ORDERED: amLODIPine 5 MG TABLET PO STA (09:39)
[2017-10-03] MEDS ORDERED: HALOPERIDOL 5 MG/ML VIAL IM STA (12:21)
[2017-10-03] MEDS ORDERED: LORazepam 2 MG/ML VIAL IM STA (13:18)
--- NOTE | 2017-10-04 09:01 | ED Physician Documentation ---
ED Addendum - Addendum Addendum: 10/04/17 09:00 He is resting okay this morning. Out of restraints and reportedly behaved okay overnight. Calm this morning. Will be given breakfast. SW to see later.
[2017-10-04] MEDS ORDERED: amLODIPine 5 MG TABLET PO STA (09:38)
[2017-10-04] MEDS ORDERED: QUEtiapine 25 MG TABLET PO STA (09:38)
[2017-10-04] MEDS ORDERED: SENNA 8.6 MG TABLET PO STA (09:39)
[2017-10-04] MEDS ORDERED: ACETAMINOPHEN 325 MG TABLET PO STA ×2 (09:40→23:36)
[2017-10-04] MEDS ORDERED: HALOPERIDOL 5 MG/ML VIAL IM STA ×2 (15:14→21:45)
[2017-10-04] MEDS ORDERED: LORazepam 2 MG/ML VIAL IM STA ×2 (15:14→21:45)
--- NOTE | 2017-10-04 15:15 | ED Physician Documentation ---
ED Addendum - Addendum Addendum: 10/04/17 15:14 Patient became agitated in the ED. Given haldol and ativan as this has worked in the past. SW working on placement.
[2017-10-04] MEDS ORDERED: OLANZapine ODT 5 MG TABLET TL STA (18:28)
--- NOTE | 2017-10-04 20:24 | ED Physician Documentation ---
ED Addendum - Addendum Addendum: 10/04/17 20:22 No geripsych beds available. Tried to call [facility] myself at 345pm, when they were not answering our phone calls and left a message. no call returned. [facility] would not take him back because of short staffing tonight. Will stay in ED tonight.
[2017-10-05] MEDS ORDERED: QUEtiapine 25 MG TABLET PO STA ×2 (04:29→14:03)
[2017-10-05] MEDS ORDERED: SENNA 8.6 MG TABLET PO STA (07:16)
[2017-10-05] MEDS ORDERED: ACETAMINOPHEN 325 MG TABLET PO STA (07:16)
[2017-10-05] MEDS ORDERED: amLODIPine 5 MG TABLET PO STA (07:16)
--- NOTE | 2017-10-05 07:48 | ED Physician Documentation ---
ED Addendum - Addendum Addendum: 10/05/17 07:44 Saw Telepsych recommendations to increase the Seroquel, and less Ativan, but did not see reference to night med Trazadone. His ED MAR shows he did not get nighttime Seroquel past 2 nights nor his Trazadone from [facility] med list. He has had poor sleep per staff and morning agitation until AM meds. This might be accounted for by lack of PM meds. I put in for schedule doses this PM, but could not enter as daily scheduled, not sure why. Will need to attend to nighttime meds review.
[2017-10-05] MEDS ORDERED: HALOPERIDOL 1 MG TABLET PO SCH (08:00)
[2017-10-05] MEDS ORDERED: HALOPERIDOL 5 MG/ML VIAL IM STA (14:02)
[2017-10-05] MEDS ORDERED: LORazepam 2 MG/ML VIAL IVP STA (15:14)
[2017-10-05] MEDS ORDERED: traZODone 50 MG TABLET PO SCH (21:00)
[2017-10-05] MEDS ORDERED: QUEtiapine 25 MG TABLET PO SCH (21:00)
[2017-10-05 23:35] VITALS: BP 150/70
[2017-10-06] MEDS ORDERED: HALOPERIDOL 5 MG/ML VIAL IM STA (10:48)
--- NOTE | 2017-10-06 12:55 | ED Physician Documentation ---
PD HPI MHE - Stated complaint Stated Complaint: DEMENTIA - Chief complaint Chief Complaint: MHE PD PAST MEDICAL HISTORY - Past Medical History Past Medical History: Yes Cardiovascular: Hypertension, High cholesterol, Coronary artery disease, Atrial fibrillation Respiratory: None Neuro: Dementia, Headache/migraine Endocrine/Autoimmune: None GI: Other : None HEENT: Chronic hearing loss, Chronic vision loss Psych: Other Musculoskeletal: None Derm: None, Psoriasis - Past Surgical History Past Surgical History: Yes General: Other Ortho: Knee replacement HEENT: Tonsil/Adenoidectomy - Present Medications Home Medications: Ambulatory Orders Medication Instructions Recorded Confirmed Walker [Ultra-Light Rollator] 1 each MC ONCE #1 each 08/01/17 10/02/17 Acetaminophen [Tylenol] 650 - 975 mg PO Q4HR PRN #30 tablet 08/02/17 10/02/17 Polyethylene Glycol 3350 [Miralax] 17 gm PO DAILY #30 packet 08/02/17 10/02/17 Senna [Senokot] 8.6 - 17.2 mg PO DAILY PRN #30 08/02/17 10/02/17 tablet amLODIPine [Norvasc] 5 mg PO DAILY #30 tablet 08/02/17 10/02/17 oxyCODONE/ACET 5/325 [Percocet 5 1 tab PO Q4HR PRN #30 tablet 08/02/17 10/02/17 mg/325 mg] traZODone [Desyrel] 50 mg PO QPM #30 tablet 08/02/17 10/02/17 Quetiapine Fumarate [Seroquel Xr] 50 mg PO BID 10/02/17 10/05/17 Haloperidol [Haldol] 5 mg PO Q8H PRN #15 tablet 10/06/17 - Allergies Allergies/Adverse Reactions: Allergies Allergy/AdvReac Type Severity Reaction Status Date / Time No Known Drug Allergies Allergy Verified 10/02/17 11:21 - Social History Does the pt smoke?: No Smoking Status: Never smoker Does the pt drink ETOH?: No Does the pt have substance abuse?: No - Immunizations Immunizations are current?: Yes - POLST Patient has POLST: No POLST Status: Full Code Results - Vitals Vitals: Vital Signs - 24 hr 10/05/17 10/05/17 16:21 23:35 Temperature 36.6 C Heart Rate 104 H 91 Respiratory 20 18 Rate Blood Pressure 145/75 H 150/70 H O2 Saturation 91 L 95 Oxygen O2 Source Room air - Labs Labs: Laboratory Tests 10/02/17 10/02/17 10/02/17 16:48 16:48 16:48 WBC 4.4 L RBC 4.57 L Hgb 13.6 L Hct 41.0 L MCV 89.7 MCH 29.7 MCHC 33.1 RDW 13.9 Plt Count 167 MPV 7.5 Neut # 2.7 Lymph # 1.2 L [place] # 0.4 Eos # 0.1 Baso # 0.0 Absolute Nucleated RBC 0.01 Nucleated RBC % 0.2 PT 12.7 H INR 1.1 Sodium 139 Potassium 3.4 L Chloride 102 Carbon Dioxide 25 Anion Gap 12.0 BUN 20 Creatinine 0.9 Estimated GFR (MDRD) 81 L Glucose 113 H Calcium 9.0 Magnesium 1.9 Total Bilirubin 1.0 AST 20 ALT 13 Alkaline Phosphatase 116 Total Protein 7.1 Albumin 3.9 Globulin 3.2 Albumin/Globulin Ratio 1.2 Lipase 13 L TSH Urine Opiates Screen Ur Oxycodone Screen Urine Methadone Screen Ur Propoxyphene Screen Ur Barbiturates Screen Ur Tricyclics Screen Ur Phencyclidine Scrn Ur Amphetamine Screen U Methamphetamines Scrn U Benzodiazepines Scrn Urine Cocaine Screen U Cannabinoids Screen Ethyl Alcohol < 5.0 10/02/17 10/02/17 16:48 19:30 WBC RBC Hgb Hct MCV MCH MCHC RDW Plt Count MPV Neut # Lymph # [place] # Eos # Baso # Absolute Nucleated RBC Nucleated RBC % PT INR Sodium Potassium Chloride Carbon Dioxide Anion Gap BUN Creatinine Estimated GFR (MDRD) Glucose Calcium Magnesium Total Bilirubin AST ALT Alkaline Phosphatase Total Protein Albumin Globulin Albumin/Globulin Ratio Lipase TSH 1.16 Urine Opiates Screen NEGATIVE Ur Oxycodone Screen POSITIVE H Urine Methadone Screen NEGATIVE Ur Propoxyphene Screen NEGATIVE Ur Barbiturates Screen NEGATIVE Ur Tricyclics Screen POSITIVE H Ur Phencyclidine Scrn NEGATIVE Ur Amphetamine Screen NEGATIVE U Methamphetamines Scrn NEGATIVE U Benzodiazepines Scrn POSITIVE H Urine Cocaine Screen NEGATIVE U Cannabinoids Screen NEGATIVE Ethyl Alcohol PD MEDICAL DECISION MAKING - ED course Complexity details: reviewed old records, reviewed results, re-evaluated patient , considered differential ED course: 82-year-old male with advanced dementia has behavioral disorder and has been in the emergency department for 96 hours awaiting placement. Placement is not forthcoming and [facility] has agreed to have the patient come back to his home with the provision he has some as needed Haldol. Departure - Departure Disposition: Home, Self Care Clinical Impression: Combative behavior Closed right hip fracture Qualifiers: Encounter type: initial encounter Qualified Code(s): S72.001A - Fracture of unspecified part of neck of right femur, initial encounter for closed fracture Condition: Stable Instructions: ED Stress React Follow-Up: aJ Lema MD [Primary Care Provider] - Prescriptions: Haloperidol [Haldol] 5 mg PO Q8H PRN #15 tablet PRN Reason: aggitation
== END 2017-10-06 13:10 | disposition home or self-care (01) ==
LOC: EDUNIT# → ED 11:13
DX: F03.91 Unspecified dementia, unspecified severity, with behavioral disturbance (principal); S72.001A Fracture of unspecified part of neck of right femur, initial encounter for closed fracture; X58.XXXA Exposure to other specified factors, initial encounter; Z98.890 Other specified postprocedural states; I10 Essential (primary) hypertension; E78.00 Pure hypercholesterolemia, unspecified; I25.10 Atherosclerotic heart disease of native coronary artery without angina pectoris; I48.91 Unspecified atrial fibrillation
CPT/HCPCS: 73502; 80053; 80306; 83690; 83735; 84443; 85025; 85610; 96372; 96374; 99285; A9270; G0480; J2060; 80320

== ENCOUNTER 2017-10-06 13:12 | Outpatient (CLI) | payer MEDICARE, OTHER | END 2017-10-06 13:13 | disposition home or self-care (01) | LOC: EMS 13:12 | PROVIDERS: ATTEND Surgery | DX: F03.91 Unspecified dementia, unspecified severity, with behavioral disturbance (principal) | CPT/HCPCS: A0425; A0428 ==

== ENCOUNTER 2018-05-22 11:07 | Outpatient (CLI) | payer MEDICARE, OTHER | END 2018-05-22 11:08 | disposition critical access hospital (66) | LOC: EMS 11:07 | PROVIDERS: ATTEND Surgery | DX: M25.551 Pain in right hip (principal); M25.552 Pain in left hip | CPT/HCPCS: A0425; A0429 ==

== ENCOUNTER 2018-05-22 11:25 | Emergency (ER) | payer MEDICARE, OTHER ==
--- NOTE | 2018-05-22 13:08 | ED Physician Documentation ---
PD HPI LOWER EXT INJURY - Stated complaint Stated Complaint: HIP PX - Chief complaint Chief Complaint: Ext Problem - History obtained from History obtained from: Patient - History of Present Illness PD HPI LOW EXT INJURY LOCATION: Right, Hip Type of injury: Other (No known injury.) Where injury occurred: Home (In assisted living where he resides.) - Additional information Additional information: The patient is an 83-year-old male with history of dementia, living at [facility] assisted [facility], where he has been complaining of pain in his right hip for the past "few months." He has been able to ambulate, and has been refusing to get an x-ray of the hip. Staff at [facility] have become concerned about a p erceived "bulge" over the right hip. He has been sent to the emergency department for further evaluation, despite his resistance. There has been no recent fall or other injury reported. History from the patient is limited because of his dementia. He denies fever, abdominal pain, difficulty with urination, numbness or weakness. Review of Systems Unable to obtain: Dementia Constitutional: denies: Fever Cardiac: denies: Chest pain / pressure Respiratory: denies: Dyspnea, Cough GI: denies: Abdominal Pain, Nausea, Vomiting : denies: Dysuria Skin: denies: Rash Musculoskeletal: denies: Neck pain, Back pain Neurologic: denies: Focal weakness, Numbness, Headache PD PAST MEDICAL HISTORY - Past Medical History Past Medical History: Yes Cardiovascular: Hypertension, High cholesterol, Coronary artery disease, Atrial fibrillation Respiratory: None Neuro: Alzhiemer's, Dementia Endocrine/Autoimmune: None GI: Other : None HEENT: Chronic hearing loss, Chronic vision loss Psych: Other Musculoskeletal: None Derm: None, Psoriasis - Past Surgical History Past Surgical History: Yes General: Other Ortho: Knee replacement HEENT: Tonsil/Adenoidectomy - Present Medications Home Medications: Ambulatory Orders Medication Instructions Recorded Confirmed Walker [Ultra-Light Rollator] 1 each MC ONCE #1 each 08/01/17 10/02/17 Acetaminophen [Tylenol] 650 - 975 mg PO Q4HR PRN #30 tablet 08/02/17 10/02/17 Polyethylene Glycol 3350 [Miralax] 17 gm PO DAILY #30 packet 08/02/17 10/02/17 Senna [Senokot] 8.6 - 17.2 mg PO DAILY PRN #30 08/02/17 10/02/17 tablet amLODIPine [Norvasc] 5 mg PO DAILY #30 tablet 08/02/17 10/02/17 oxyCODONE/ACET 5/325 [Percocet 5 1 tab PO Q4HR PRN #30 tablet 08/02/17 10/02/17 mg/325 mg] traZODone [Desyrel] 50 mg PO QPM #30 tablet 08/02/17 10/02/17 Quetiapine Fumarate [Seroquel Xr] 50 mg PO BID 10/02/17 10/05/17 Haloperidol [Haldol] 5 mg PO Q8H PRN #15 tablet 10/06/17 - Allergies Allergies/Adverse Reactions: Allergies Allergy/AdvReac Type Severity Reaction Status Date / Time No Known Drug Allergies Allergy Verified 05/22/18 11:38 - Social History Does the pt smoke?: No Smoking Status: Never smoker Does the pt drink ETOH?: No Does the pt have substance abuse?: No - Immunizations Immunizations are current?: Yes - POLST Patient has POLST: No POLST Status: Full Code PD ED PE NORMAL - Vitals Vital signs reviewed: Yes (Mild hypertension.) - General General: Well developed/nourished, Other (Alert, elderly male with memory impairment, consistent with dementia.) - HEENT HEENT: Atraumatic, Moist mucous membranes, Pharynx benign - Neck Neck: No bony TTP, No adenopathy, No JVD - Cardiac Cardiac: RRR - Respiratory Respiratory: No respiratory distress, Clear bilaterally - Abdomen Abdomen: Soft, Non tender - Back Back: No CVA TTP, No spinal TTP - Derm Derm: No rash - Extremities Extremities: No deformity, No tenderness to palpate, Normal ROM s pain, No edema, No calf tenderness / cord, Other (The patient has full range of motion of both right and left hips, including internal and external rotation, without evidence of discomfort. There is no soft tissue swelling, erythema, or "bulge." There is a well-healed surgical scar consistent with right hip surgery.) - Neuro Neuro: No motor deficit, No sensory deficit, Normal speech, Other (Alert disoriented regarding date, and recent events.) Results - Vitals Vitals: Oxygen O2 Source Room air - Rads (name of study) Right hip/pelvis Radiology: Prelim report reviewed, EMP read contemporaneously, See rad report (Postop intertrochanteric fracture compression screw. Lesser trochanteric fracture chronic.) PD MEDICAL DECISION MAKING - ED course Complexity details: reviewed old records, reviewed results, re-evaluated patient, considered differential, d/w patient ED course: The underlying cause for the patient's previous complaint of right hip pain is uncertain. He does not demonstrate any discomfort in the right hip at this time. X-ray reveals no acute fracture or other acute findings. His hardware from previous intertrochanteric fracture is intact. Following x-ray examination the patient demonstrated ability to ambulate in the hallway without apparent discomfort. He is being discharged with no further intervention, and is being advised to arrange outpatient follow-up. I also discussed with him potentially worrisome signs or symptoms that should prompt reevaluation in the emergency department. - Sepsis Event Vital Signs: Oxygen O2 Source Room air Departure - Departure Disposition: 01 Home, Self Care Clinical Impression: Right hip pain Condition: Stable Instructions: ED Joint Pain Follow-Up: Charan Conrad MD [Primary Care Provider] - Comments: Follow-up with your primary physician within 2 weeks. Call to schedule appo intment. Return to the emergency department if increasing leg pain, or otherwise worsening symptoms. Discharge Date/Time: 05/22/18 13:20
[2018-05-22 13:19] VITALS: BP 172/96
--- NOTE | 2018-05-22 13:20 | XRAY Report ---
Reason: right hip pain Procedure Date: 05/22/2018 Accession Number: [id number] / [id number] Procedure: XR - Hip w/Pelvis 2-3V RT CPT Code: FULL RESULT: EXAM: RIGHT HIP AND PELVIS RADIOGRAPHY EXAM DATE: 05/22/2018 12:00 PM. HISTORY: Right hip pain. COMPARISONS: 10/02/2017. TECHNIQUE: 1 view of the pelvis and 1 view of the hip. FINDINGS: Bones: Status post previous right hip intramedullary mikey and compression screw for intertrochanteric, lesser trochanter fracture. Hardware is intact. Calcification superior to the greater trochanter Right hip joint space narrowing. Left hip joint space mild narrowing. Symphysis pubis, SI joints intact. Soft Tissues: Normal. No soft tissue swelling. IMPRESSION: 1. Postop intertrochanteric fracture compression screw. Lesser trochanter fracture chronic. [facility]
== END 2018-05-22 13:20 | disposition home or self-care (01) ==
LOC: EDUNIT# → ED 11:25
DX: M25.551 Pain in right hip (principal); G30.9 Alzheimer's disease, unspecified; F02.80 Dementia in other diseases classified elsewhere, unspecified severity, without behavioral disturbance, psychotic disturbance, mood disturbance, and anxiety; I10 Essential (primary) hypertension; E78.00 Pure hypercholesterolemia, unspecified; I25.10 Atherosclerotic heart disease of native coronary artery without angina pectoris; Z96.659 Presence of unspecified artificial knee joint
CPT/HCPCS: 99282; 99283